=== PATIENT | female | born 1965 | race Caucasian/White ===

== ENCOUNTER 2017-01-05 14:06 | Inpatient (IN) | payer BC, OTHER ==
[~2017-01-05] VITALS: Ht 170.2 cm; Wt 77.1 kg
--- NOTE | 2017-01-05 22:50 | NUR ---
PRE-ADMISSION NOTE: Patient assessed in intake office at 2250 on 01/05/2017. Patient is ambulatory with steady gate, stable, AOx4, speech is clear. Patient states that he is here, in the [facility] " for Safety Detox from Alcohol and Crack Cocaine dependence". Patient states that he last used Alcohol "Vodka 1/2 pint and Crack Cocaine on "01/03/2017 ". Patient can't recalls exactly time she taken. Patient reports used Alcohol "Vodka 4x week since 2015 ". Patient also reports used "Crack Cocaine 4xweek since 2015". Patient reports smoking "1/2 pack of cigarettes every day". Patient reports NKA. Patient placed on Full Code, Regular Diet, Fall and Seizures Precautions. Patient denies History of Seizures. Patient's CIWA 7. The patient reported the following symptoms of withdrawal: anxiety, agitation, nervousness, tremors that can be felt, diaphoresis, restless legs, and fatigue. Patient denies SI/HI. Breathing is even and unlabored. Patient denies SOB and chest pain. Last BM was "01/05/2017". VS: T: 98.2; BP: 139/91; HR: 57; RR: 18; O2 SAT: 97%. Patient denies pain now: "0/10". Patient instructed on unit protocol of vitals Q4H and COWS/CIWA assessments. Patient verbalized understanding and agreement. Patient also instructed on policy regarding destruction of any controlled substances/prescriptions brought to facility, and handling of all medications. Patient verbalized understanding and agreement. Will complete admission assessment when patient is brought up to unit.
--- NOTE | 2017-01-05 23:15 | NUR ---
ADMISSION NOTE New patient is a 51 year old female admitted to [facility] on 01/05/2017 at 2315 for medically supervised safety withdrawal from Alcohol and Crack Cocaine. Patient reports NKA. Patient placed on Full Code, Regular Diet, Fall and Seizures Precautions. Patient denies a history of withdrawal-induced seizures. Past Medical History: Anxiety, Depression, Hypothyroidism, History Of Lupus, Chronic tobacco use, Alcohol dependence, Crack Cocaine dependence. Patient reports "I do not have PCP". Pre-assessment completed in intake. Patient provided UDS test at this time. Patient is ambulatory with steady gate, stable, A&Ox4, speech is clear. Height: 68 in, Weight: 170 lbs by standing scale. VS upon admission: T: 98.2; BP: 139/91; HR: 57; RR: 18; O2 SAT: 97%. Patient denies pain now: "0/10". CIWA 7. The patient reported the following symptoms of withdrawal: anxiety, agitation, nervousness, tremors that can be felt, diaphoresis, restless legs, and fatigue. Patient denies SI/HI. Upon initial assessment, patient's Respirations unlabored and even. Patient denies SOB and chest pain. Lungs Sounds are clear bilaterally. Bowel Sounds active in all x4 quadrants. Abdomen is soft and non-tender. PERRLA, brisk capillary refill, marine safety officer equal and strong. Skin is intact, warm and dry to touch. Patient reports the following Substances Use: 1. "Alcohol - Vodka 4x week since 2015 ". Last used "Vodka 1/2 pint on "01/03/2017 ". 2. "Crack Cocaine - 4x week since 2015". Last used " Crack Cocaine on "01/03/2017 ". Patient reports smoking "1/2 pack of cigarettes every day". Patient reports " the longest sobriety being for 10 years : 2004 -2014". No Home Medications. Patient oriented to his room, [facility] Call Light[facility]. Encourage fluids as tolerated. Encourage to attend activities groups. All needs met. Safety measures on place. Call light within reach, bed in lowest position and locked, padded rails up bilaterally rails up bilaterally. Will continue to monitor closely. Addendum: 01/06/17 at 0401 by CHRIS OROZCO RN Patient reports using "Xanax 2 mg TID for 8 years". Last used 2 mg on 01/02/2017 at 1700".
[2017-01-05] MEDS ORDERED: CLONIDINE HCL 0.1 MG TABLET PO PRN (23:45)
[2017-01-05] MEDS ORDERED: HYDROXYZINE PAMOATE 25 MG CAPSULE PO PRN (23:45)
[2017-01-05] MEDS ORDERED: MAGNESIUM HYDROXIDE 30 ML LIQUID UDC PO PRN (23:45)
[2017-01-05] MEDS ORDERED: LORAZEPAM 2 MG/1 ML VIAL IM PRN (23:45)
[2017-01-05] MEDS ORDERED: ACETAMINOPHEN 325 MG TABLET PO PRN (23:45)
[2017-01-05] MEDS ORDERED: LOPERAMIDE HCL 2 MG CAPSULE PO PRN ×2 (23:45)
[2017-01-05] MEDS ORDERED: ONDANSETRON 4 MG/2 ML VIAL IM PRN (23:45)
[2017-01-05] MEDS ORDERED: THIAMINE HCL 200 MG/2 ML VIAL IM ONE (23:45)
[2017-01-05] MEDS ORDERED: MIRALAX 17 GM POWD.PACK PO PRN (23:45)
[2017-01-05] MEDS ORDERED: MAG HYDROX/AL HYDROX/SIMETH 30 ML LIQUID UDC PO PRN (23:45)
[2017-01-05] MEDS ORDERED: ONDANSETRON ODT 4 MG TAB.RAPDIS SL PRN (23:45)
[2017-01-05] MEDS ORDERED: LORAZEPAM 1 MG TABLET PO PRN ×2 (23:45)
[2017-01-05 23:58] LABS: *URINE HCG, QUAL NEGATIVE (NEGATIVE)
[2017-01-06] VITALS: BP 139/91
[2017-01-06 00:45] LABS: *AMPHETAMINE, URINE NEGATIVE (NEGATIVE); *BARBITURATE, URINE NEGATIVE (NEGATIVE); *CANNABINOID, URINE POSITIVE (NEGATIVE); *COCCAINE, URINE POSITIVE (NEGATIVE); *OPIATE, URINE NEGATIVE (NEGATIVE); *PHENCYCLIDINE SCREEN,URINE NEGATIVE (NEGATIVE)
[2017-01-06 01:35] LABS: BASOPHILS % (AUTO) 0.2 % (0.0-2.0); EOSINOPHILS # (AUTO) 0.5 K/uL (0.0-0.7); EOSINOPHILS % (AUTO) 9.9 % (0.0-7.0); HEMATOCRIT 38.1 % (37-47); HEMOGLOBIN 12.7 G/DL (12.0-16.0); LYMPHOCYTES # (AUTO) 1.8 K/UL (0.8-4.8); LYMPHOCYTES % (AUTO) 37.9 % (20.5-51.5); MEAN CORPUSCULAR HEMOGLOBIN 33.3 UUG (27.0-31.0); MEAN CORPUSCULAR HGB CONC 33 g/dL (32.0-37.0); MEAN CORPUSCULAR VOLUME 99.6 FL (81.0-99.0); MONOCYTES # (AUTO) 0.5 K/UL (0.1-1.30); MONOCYTES % (AUTO) 10.7 % (0.0-11.0); NEUTROPHILS # (AUTO) 1.9 K/UL (1.8-8.9); NEUTROPHILS % (AUTO) 41.3 % (38.5-71.5); PLATELET COUNT (AUTO) 231 K/UL (150-450); RED BLOOD CELL COUNT(AUTO) 3.83 MIL/UL (4.2-5.4); WHITE BLOOD COUNT (AUTO) 4.7 K/UL (4.0-11.2)
[2017-01-06 02:54] LABS: ALANINE AMINOTRANSFERASE 27 U/L (14-59); ALKALINE PHOSPHATASE 72 U/L (50-136); AMYLASE 62 U/L (25-115); ASPARTATE AMINOTRANSFERASE 17 U/L (15-37); BILIRUBIN,TOTAL 0.6 mg/dL (0.2-1.0); CARBON DIOXIDE 29 mmol/L (21-32); CHLORIDE 103 mmol/L (98-107); ETHANOL < 3 MG/DL (0-0); GLUCOSE 90 mg/dL (74-106); LIPASE 104 U/L (73-393); POTASSIUM 3.2 mmol/L (3.5-5.1); TOTAL PROTEIN, SERUM 7.3 g/dL (6.4-8.2); UREA NITROGEN, BLOOD 10 mg/dL (7-18)
[2017-01-06 02:58] LABS: THYROID STIMULATING HORMONE 1.463 mIU/mL (0.358-3.740)
[2017-01-06] MEDS ORDERED: POTASSIUM CHLORIDE 20 MEQ TAB.PRT.SR PO ONE (03:30)
[2017-01-06 04:00] VITALS: BP 115/78
--- NOTE | 2017-01-06 06:57 | NUR ---
END OF SHIFT NOTE: Patient is a 51 year old female admitted to [facility] on 01/05/2017 for medically supervised detox from Benzodiazepines, Alcohol, and Crack Cocaine dependence. Patient reports NKA. Patient is on Full Code, Regular Diet, and Fall and Seizures Precautions. Patients denies Seizures Hx r/t withdrawal from substances. Past Medical History: Anxiety, Depression, Hypothyroidism, History Of Lupus, Chronic tobacco use, Benzodiazepines dependence, Alcohol dependence, and Crack Cocaine dependence. VS at 0400: T: 98.4; BP: 115/78; HR: 70; RR: 17; O2 SAT: 99%. Patient denies any pain at this time. CIWA 4 at 0400. Patient denies SI/HI. Upon assessment at 0400, respirations unlabored and even. Skin is intact, warm and dry to touch. Patient reports the following Substances Use: 1."Xanax 2 mg TID for 8 years". Last used 2 mg on 01/02/2017 at 1700". 2."Alcohol - Vodka 4x week since 2015 ". Last used "Vodka 1/2 pint on "01/03/2017 ". 3. "Crack Cocaine - 4x week since 2015". Last used " Crack Cocaine on "01/03/2017 ". Patient reports " the longest sobriety being for 10 years : 2004 -2014". Patient reports smoking "1/2 pack /10 cigarettes every day". K-Dur (Potassium Chloride 40 MEQ 2Tab. PRT.SRS) administrated as ordered @0334. Patient tolerated well. Encouraged fluids as tolerated. Patient slept 4 hours 30 minutes, intake 500 ml, voided x1. All needs met. Safety measures on place. Call light within reach, bed in lowest position and locked, padded rails up bilaterally. Patient endorsed to day shift nurse.
--- NOTE | 2017-01-06 07:30 | NUR ---
START OF SHIFT Pt is a 51 yr old female, A&Ox4. Pt was admitted on 01/05/17 for ETOH/Benzo dependence and is on PRN's for s/s of w/d. Pt is currently in bed resting with respirations even and unlabored. No acute distress noted. Pt states, "I just feel tired" and denies any symptoms of w/d. Skin is intact, warm and dry to touch. No tremors seen or felt. Pt denies any n/v or headache. Encouraged increase fluid intake. Safety precautions observed. Call light is within reach. Will continue to monitor.
[2017-01-06 08:00] VITALS: BP 119/83
[2017-01-06] MEDS ORDERED: TUBERCULIN,PURIF.PROT.DERIV. 5 TU/0.1 ML TEST ID ONE (09:00)
[2017-01-06] MEDS: THIAMINE HCL 100 MG TABLET PO SCH (09:12)
[2017-01-06] MEDS: FOLIC ACID 1 MG TABLET PO SCH (09:12)
[2017-01-06] MEDS: MULTIVITAMINS,THERAPEUTIC TABLET PO SCH (09:12)
[2017-01-06 12:00] VITALS: BP 122/81
[2017-01-06 16:00] VITALS: BP 106/76
--- NOTE | 2017-01-06 18:51 | NUR ---
END OF SHIFT Pt is a 51 yr old female, A&Ox4. Pt was admitted on 01/05/17 for ETOH/Benzo dependence and is on PRN's for s/s of w/d. No PRNs were given during the day. Last CIWA score was 1 at 1600. Pt has been in bed throughout the day. Pt states of "I just feel tired". Skin is intact, warm and dry to touch. No tremors seen or felt. Pt denies any n/v or headache. Pt has been cooperative with medication regimen. Encouraged increase fluid intake. Safety precautions observed. Call light is within reach.
[2017-01-06 20:00] VITALS: BP 109/69
--- NOTE | 2017-01-06 20:00 | NUR ---
START OF SHIFT NOTE PATIENT IN HER ROOM, RESTING. UPON GREETING, PATIENT STATES SHE'S JUST TIRED. NO N/V. DENIES ANY PAIN AT THIS TIME. PATIENT DID NOT ATTEND ANY GROUPS. PATIENT ENCOURAGED. RECEIVED REPORT FROM DAY SHIFT NURSE. PATIENT IS A 51 YEAR OLD FEMALE, ADMITTED FOR ETOH/BENZO AND CRACK DEPENDENCE. PATIENT IS ON TAPER, PRN MEDICATION AVAILABLE. PATIENT REPORTS NO SEIZURE HISTORY. SKIN INTACT. PATIENT IN BED THROUGHOUT THE DAY. PATIENT DID NOT REQUIRE ANY PRN MEDICATION . LAST CIWA 1. ON FALL/SEIZURE PRECAUTION. SAFETY MEASURES IN PLACE. CALL LIGHT IN REACH. WILL CONTINUE TO MONITOR
[2017-01-06] MEDS: diphenhydrAMINE 50 MG CAPSULE PO PRN (20:59)
--- NOTE | 2017-01-06 20:59 | NUR ---
PRN BENADRYL ADMINISTRATION PATIENT REQUESTS FOR SLEEP AID. PRN BENADRYL GIVEN. WILL MONITOR FOR EFFECTIVENESS
--- NOTE | 2017-01-06 23:00 | NUR ---
MARTY CLOUD RE-ASSESSMENT PATIENT ASLEEP AT THIS TIME. RESPIRATION EVEN AND UNLABORED. SAFETY MEASURES IN PLACE. CALL LIGHT IN REACH. WILL CONTINUE TO MONITOR.
[2017-01-07] VITALS: BP 111/72
[2017-01-07 07:09] LABS: CREATININE 0.9 mg/dL (0.6-1.3); POTASSIUM 4.6 mmol/L (3.5-5.1)
--- NOTE | 2017-01-07 07:10 | NUR ---
END OF SHIFT NOTE PATIENT IN HER ROOM MOST OF THE SHIFT. PATIENT COMPLIANT WITH MEDICATIONS. PATIENT DID NOT ATTEND ANY GROUPS. PATIENT ENCOURAGED. RECEIVED REPORT FROM DAY SHIFT NURSE. PATIENT IS UNDER OBSERVATION, PATIENT IS NOT ON TAPER, PRN MEDICATION AVAILABLE. PATIENT WAS GIVEN PRN BENADRYL FOR SLEEP. ON FALL/SEIZURE PRECAUTION. SAFETY MEASURES IN PLACE. CALL LIGHT IN REACH. WILL CONTINUE TO MONITOR . SLEPT 8 HOURS. FLUID INTAKE 296 ML. VOIDED X 1. NO BM. LAST CIWA 0.
--- NOTE | 2017-01-07 07:11 | NUR ---
START OF SHIFT Pt is a 51 yr old female, A&Ox4. Pt was admitted on 01/05/17 for ETOH/Benzo dependence and is on PRN's for s/s of w/d. Pt is currently in bed resting with respirations even and unlabored. No acute distress noted. Skin is intact, warm and dry to touch. No tremors seen or felt. Pt denies any n/v or headache. Encouraged increase fluid intake. Pt received Benadryl PRN for sleep. Pt slept for 8 hrs. Last CIWA score was 0. Safety precautions observed. Call light is within reach. Will continue to monitor.
[2017-01-07 08:00] VITALS: BP_SYST 123; BP_SYST 130; BP_DIAS 75; BP_DIAS 76
[2017-01-07 09:07] LABS: HEPATITIS B SURFACE AG Negative (Negative)
[2017-01-07] MEDS: MULTIVITAMINS,THERAPEUTIC TABLET PO SCH (09:11)
[2017-01-07] MEDS: FOLIC ACID 1 MG TABLET PO SCH (09:11)
[2017-01-07] MEDS: IBUPROFEN 400 MG TABLET PO PRN ×2 (09:11→20:28)
--- NOTE | 2017-01-07 09:11 | NUR ---
PRN GIVEN Pt c/o left shoulder pain 07/07. Motrin 400mg PO PRN was given as ordered. Medication collette well. Encouraged increase fluid intake. Will continue to monitor.
[2017-01-07] MEDS: ESCITALOPRAM OXALATE 10 MG TABLET PO SCH (09:12)
[2017-01-07] MEDS: THIAMINE HCL 100 MG TABLET PO SCH (09:12)
--- NOTE | 2017-01-07 10:04 | NUR ---
Therapist prompted client about group times. Client stated she will attend all groups today.
--- NOTE | 2017-01-07 10:11 | NUR ---
PRN RE-ASSESSMENT Motrin PRN was effective. Pain level is 0/10. No facial grimacing is observed. Will continue to monitor.
--- NOTE | 2017-01-07 11:45 | NUR ---
ENDORSEMENT GIVEN Endorsed pt to RN nurse to continue with care. Pt is in stable condition. VS WNL.
--- NOTE | 2017-01-07 11:45 | NUR ---
RESUMED CARE Resumed care of patient, all pertinent information provided, pt is stable at this time.
[2017-01-07 12:25] VITALS: BP 134/81
[2017-01-07 17:42] VITALS: BP 129/78
--- NOTE | 2017-01-07 19:10 | NUR ---
END OF SHIFT Endorsed to night nurse. Pt was not on a taper and is medically cleared for d/c. V/S remain WNL. PRN Motrin administered and effective. Pt attends groups and activities. Last CIWA score was 3. Safety precautions observed. Call light is within reach. No acute distress noted. Night nurse will continue to monitor.
[2017-01-07 20:00] VITALS: BP 121/78
--- NOTE | 2017-01-07 20:00 | NUR ---
START OF SHIFT NOTE PATIENT ALERT AND ORIENTED X 4. RESPIRATION EVEN AND UNLABORED. UPON GREETING, PATIENT STATES SHE JUST RESTING. PATIENT REPORTS ANXIETY AND LEFT SHOULDER PAIN 08/07. NO N/V/D. RECEIVED REPORT FROM DAY SHIFT NURSE. PATIENT IS A 51 YEAR FEMALE ADMITTED FOR BENZO/ETOH AND CRACK COCAINE DEPENDENCE. PATIENT WAS NOT ON TAPER, PRN MEDICATION AVAILABLE. PATIENT IS MEDICALLY CLEARED TO BE DISCHARGE TOMORROW. PATIENT WAS C/O ANXIETY AND LEFT SHOULDER PAIN . PATIENT WAS GIVEN PRN MOTRIN. LAST CIWA 3. ON FALL/SEIZURE PRECAUTION . SAFETY MEASURES IN PLACE. CALL LIGHT IN REACH. WILL CONTINUE TO MONITOR.
[2017-01-07] MEDS: diphenhydrAMINE 50 MG CAPSULE PO PRN (20:28)
--- NOTE | 2017-01-07 20:28 | NUR ---
PRN BENADRYL AND MOTRIN ADMINISTRATION PATIENT C/O LEFT SHOULDER PAIN 08/07 AND REQUESTS FOR SLEEP AID. PRN BENADRYL AND MOTRIN . WILL MONITOR FOR EFFECTIVENESS
--- NOTE | 2017-01-07 21:28 | NUR ---
MARTY DURAN AND AI RE-ASSESSMENT PATIENT IN BED WITH HER EYES CLOSED. NO FACIAL GRIMACING. NO S/S OF DISTRESS. WILL CONTINUE TO MONITOR
--- NOTE | 2017-01-08 | NUR ---
CIWA/VS PATIENT ASLEEP. CIWA UNABLE TO ASSESS. RESPIRATION EVEN AND UNLABORED. RR 14. SAFETY MEASURES IN PLACE. CALL LIGHT IN REACH. WILL CONTINUE TO MONITOR
--- NOTE | 2017-01-08 04:00 | NUR ---
CIWA/VS PATIENT ASLEEP. CIWA UNABLE TO ASSESS. RESPIRATION EVEN AND UNLABORED. RR 15. SAFETY MEASURES IN PLACE. CALL LIGHT IN REACH. WILL CONTINUE TO MONITOR
--- NOTE | 2017-01-08 07:14 | NUR ---
END OF SHIFT NOTE PATIENT IS MEDICALLY CLEARED TO BE DISCHARGE TODAY. PATIENT IN HER ROOM MOST OF THE SHIFT. PATIENT WAS C/O ANXIETY AND LEFT SHOULDER PAIN . PATIENT WAS GIVEN PRN MOTRIN AND PRN BENADRYL FOR SLEEP. RELAXATION TECHNIQUE PROVIDED. PATIENT STABLE. REMAIN FREE OF INJURY. ON FALL/SEIZURE PRECAUTION . SAFETY MEASURES IN PLACE. CALL LIGHT IN REACH. WILL CONTINUE TO MONITOR. SLEPT 8 HOURS. FLUID INTAKE 1,097 ML.VOIDED X 4 . NO BM. LAST CIWA 2.
--- NOTE | 2017-01-08 07:34 | NUR ---
START OF SHIFT Patient scheduled for discharge this shift. Patient reports readiness for discharge. No taper ordered for patient. PRN Motrin and Benadryl given by night time nanny with effectiveness. Last CIWA 2 per night nurse. Will monitor closely until discharge.
[2017-01-08 08:00] VITALS: BP 132/74
[2017-01-08] MEDS: THIAMINE HCL 100 MG TABLET PO SCH (08:22)
[2017-01-08] MEDS: ESCITALOPRAM OXALATE 10 MG TABLET PO SCH (08:22)
[2017-01-08] MEDS: MULTIVITAMINS,THERAPEUTIC TABLET PO SCH (08:22)
[2017-01-08] MEDS: FOLIC ACID 1 MG TABLET PO SCH (08:22)
--- NOTE | 2017-01-08 09:49 | NUR ---
DISCHARGE NOTE PT IN STABLE CONDITION. VITALS WNL. PT IS AOX4, SKIN INTACT. PT DENIES S/I OR H/I. ALL DC PAPERWORK COMPLETED, DATED, SIGNED. PT EDUCATED ON DC INSTRUCTIONS, WHAT TO DO AFTER DC, AND WHEN TO CONTACT MD. PT VERBALIZED UNDERSTANDING OF ALL INFO GIVEN. LAST CIWA 1. PT WAS DISCHARGED FROM [facility] ON 01/08/17 AT 0947. PT LEFT WITH ALL BELONGINGS. PT WAS TRANSPORTED TO [facility] BY [facility] AND PICKED UP BY [facility].
== END 2017-01-08 09:47 | disposition other institution (70) | DRG 895 ==
LOC: SRC 22:04
PROVIDERS: ADMIT Internal Medicine; ATTEND Internal Medicine
PROC: HZ2ZZZZ Detoxification Services for Substance Abuse Treatment (ICD-10-PCS; principal; 2017-01-05)
PROC: HZ31ZZZ Individual Counseling for Substance Abuse Treatment, Behavioral (ICD-10-PCS; 2017-01-07)
PROC: HZ41ZZZ Group Counseling for Substance Abuse Treatment, Behavioral (ICD-10-PCS; 2017-01-07)
DX: F10.230 Alcohol dependence with withdrawal, uncomplicated (principal); F33.1 Major depressive disorder, recurrent, moderate; F14.20 Cocaine dependence, uncomplicated; F13.10 Sedative, hypnotic or anxiolytic abuse, uncomplicated; Y90.9 Presence of alcohol in blood, level not specified; E87.6 Hypokalemia; F41.9 Anxiety disorder, unspecified; G47.00 Insomnia, unspecified
CPT/HCPCS: 36415; 70030-TC; 80307; 80346; 80349; 80353; 83690; 83735; 84443; 84703; 85025; 86580; 86592; 86705; 86803; 87340; 87806; A4663; G0480; Q0163